=== PATIENT | male | born 1940 | race Caucasian/White ===

== ENCOUNTER 2016-05-29 17:59 | Emergency (ER) | payer MEDICARE, BC ==
[2016-05-29] MEDS ORDERED: Tetracaine HCl 0.5% Ophth Soln 2 ML Bottle ONE (18:13)
[2016-05-29] MEDS ORDERED: Fluorescein Opthalmic Strip ONE (18:20)
== END 2016-05-29 18:44 | disposition home or self-care (01) ==
LOC: BURERS 17:59
DX: H10.9 Unspecified conjunctivitis (principal); Z79.82 Long term (current) use of aspirin; Z79.899 Other long term (current) drug therapy
CPT/HCPCS: 99282